=== PATIENT | male | born 1965 | race Caucasian/White ===

== ENCOUNTER 2016-11-22 19:30 | Emergency (ER) | payer BC ==
[~2016-11-22] VITALS: Ht 190.5 cm; Wt 125.0 kg
[~2016-11-22 19:30] MED LIST: ALBUTEROL0.83 MG/ML IH; ASPIRIN 81M81 MG/TA2 PO; COMBIVENT INH14.7 GM IH; MEDROL 4MG DOSPA4 MG PO; MUCINEX DM 60 M1 TER; PREDNISONE20 MG PO; PROAIR HFA0.09 MG/AC IH; VENTOLIN0.09 MG IH
[2016-11-22 19:32] VITALS: TEMP 97.8
[2016-11-22 20:17] VITALS: BP 110/65; PULSE 105
== END 2016-11-22 20:18 | disposition home or self-care (01) ==
LOC: COL.ER 19:30
DX: J45.901 Unspecified asthma with (acute) exacerbation (principal); F17.210 Nicotine dependence, cigarettes, uncomplicated; Z76.0 Encounter for issue of repeat prescription; Z79.82 Long term (current) use of aspirin

== ENCOUNTER 2016-12-19 11:51 | Emergency (ER) | payer BC ==
[~2016-12-19] VITALS: Ht 190.5 cm; Wt 125.0 kg
[2016-12-19 12:01] VITALS: BP 141/85; PULSE 83; TEMP 97.6
[2016-12-19] MEDS ORDERED: CEPHALEXIN500 M1 PO (12:59)
[2016-12-19] MEDS ORDERED: PREDNISONE20 MG PO (12:59)
[2016-12-19] MEDS ORDERED: ATARAX 25MG25 MG/TAB PO (12:59)
[2016-12-19] MEDS ORDERED: PROAIR HFA0.09 MG/AC IH (12:59)
== END 2016-12-19 13:05 | disposition home or self-care (01) ==
LOC: COL.ER 11:51
DX: H10.13 Acute atopic conjunctivitis, bilateral (principal); L20.9 Atopic dermatitis, unspecified; J45.909 Unspecified asthma, uncomplicated; Z79.82 Long term (current) use of aspirin
CPT/HCPCS: J7512

== ENCOUNTER 2017-01-16 15:49 | Emergency (ER) | payer BC ==
[~2017-01-16] VITALS: Ht 190.5 cm; Wt 125.0 kg
[~2017-01-16 15:49] MED LIST changes: +ATARAX 25MG25 MG/TAB PO; +CEPHALEXIN500 M1 PO
[2017-01-16 16:03] VITALS: BP 119/79; TEMP 98.1
[2017-01-16] MEDS ORDERED: BENADRYL50 MG PO (16:07)
[2017-01-16] MEDS ORDERED: PREDNISONE20 MG PO (17:08)
[2017-01-16] MEDS ORDERED: ATARAX 25MG25 MG/TAB PO (17:08)
[2017-01-16 17:27] VITALS: PULSE 93
== END 2017-01-16 17:27 | disposition home or self-care (01) ==
LOC: COL.ER 15:49
DX: T78.40XA Allergy, unspecified, initial encounter (principal)

== ENCOUNTER 2017-07-15 14:56 | Emergency (ER) | payer BC ==
[~2017-07-15] VITALS: Ht 188 cm; Wt 125.0 kg
[~2017-07-15 14:56] MED LIST changes: +BENADRYL50 MG PO
[2017-07-15] MEDS ORDERED: PROAIR HFA0.09 MG/AC IH (15:08)
[2017-07-15 17:03] VITALS: BP 118/78; PULSE 101; TEMP 98.2
== END 2017-07-15 17:04 | disposition home or self-care (01) ==
LOC: COL.ER 14:56
DX: J45.909 Unspecified asthma, uncomplicated (principal); Z87.891 Personal history of nicotine dependence

== ENCOUNTER 2017-09-30 10:29 | Emergency (ER) | payer BC ==
[~2017-09-30] VITALS: Wt 128.2 kg
[2017-09-30] MEDS ORDERED: PROAIR HFA0.09 MG/AC IH (11:02)
[2017-09-30] MEDS ORDERED: PREDNISONE20 MG PO (11:02)
[2017-09-30 11:41] VITALS: BP 132/86; PULSE 90; TEMP 97
== END 2017-09-30 11:52 | disposition home or self-care (01) ==
LOC: COL.ER 10:29
DX: J45.909 Unspecified asthma, uncomplicated (principal)
CPT/HCPCS: J7512